=== PATIENT | male | born 1980 ===

== ENCOUNTER → 2023-04-10 16:00 | Outpatient (BNVA) | payer OTHER, SELFPAY | PROVIDERS: PCP Family Medicine; Visit Provider Family Medicine | DX: F41.1 Generalized anxiety disorder (principal); N52.9 Male erectile dysfunction, unspecified; Z11.4 Encounter for screening for human immunodeficiency virus [HIV]; Z11.59 Encounter for screening for other viral diseases; E83.52 Hypercalcemia; Z12.5 Encounter for screening for malignant neoplasm of prostate; Z76.89 Persons encountering health services in other specified circumstances | CPT/HCPCS: 80053; 80061; 82306; 82607; 83036; 84443; 85025; 86803; 87806; G0103 ==

== ENCOUNTER → 2024-03-23 15:43 | Outpatient (BNVA) | payer OTHER, SELFPAY | PROVIDERS: PCP Family Medicine; Visit Provider Family Medicine | DX: N52.9 Male erectile dysfunction, unspecified (principal); D68.51 Activated protein C resistance; E78.2 Mixed hyperlipidemia | CPT/HCPCS: 80053; 80061; 81241 ==